=== PATIENT | female | born 1995 | race Caucasian/White ===

== ENCOUNTER 2017-07-31 17:11 | Outpatient (CLI) | payer OTHER ==
[~2017-07-31] VITALS: Ht 160 cm; Wt 100.5 kg
[2017-07-31 19:56] LABS: APPEARANCE CLOUDY ((CLEAR)); BILIRUBIN NEGATIVE; BLOOD NEGATIVE; COLOR YELLOW ((YELLOW)); GLUCOSE (STRIP) NEGATIVE; KETONES NEGATIVE; LEUKOCYTES LARGE; NITRITE NEGATIVE; PROTEIN (STRIP) 100; SPECIFIC GRAVITY 1.025 (1.000-1.030); UROBILINOGEN 0.2 MG/DL (0.2-1.0)
[2017-07-31 20:09] LABS: HEMATOCRIT 36.3 % (36.0-46.0); HEMOGLOBIN 12.3 G/DL (11.9-15.5); MCH 28.2 PG (29.0-34.0); MCHC 33.9 G/DL (30.0-36.0); MCV 83.3 FL (83-99); PLATELET COUNT 231 K/uL (156-360); RBC DIS.WIDTH-SD 38.8 % (39-53); RED BLOOD COUNT 4.36 M/uL (3.80-5.20); WHITE BLOOD COUNT 12.6 K/uL (4.1-10.2)
[2017-07-31 20:17] LABS: RED BLOOD CELLS 0-5 /HPF (0-5)
[2017-07-31 20:17] LABS: ALBUMIN 3.4 g/dL (3.2-4.8); CHLORIDE 107 mEq/L (99-109); SODIUM 138 mEq/L (136-147)
[2017-07-31 20:18] LABS: AMORPHOUS PHOSPHATE CRYSTALS 1+; BACTERIA 2+ /HPF; EPITHELIAL CELLS 1+ /HPF; MUCUS NONE SEEN /LPF; UCUL ADDED? YES; WHITE BLOOD CELLS TNTC /HPF (0-5)
[2017-07-31 20:19] LABS: GLUCOSE 86 mg/dL (70-99); TOTAL PROTEIN 6.6 g/dL (6.4-8.3)
[2017-07-31 20:21] LABS: TOTAL BILIRUBIN 0.2 mg/dL (0.0-1.0)
[2017-07-31 20:23] LABS: ALKALINE PHOSPHATASE 174 IU/L (3-129); CREATININE 0.6 mg/dL (0.6-1.3)
[2017-07-31 20:24] LABS: UREA NITROGEN (BUN) 8 mg/dL (9-23)
[2017-07-31 20:25] LABS: AST (GOT) 21 IU/L (2-34)
[2017-07-31 20:26] LABS: ALT (GPT) 18 IU/L (3-49)
[2017-07-31 20:27] LABS: GFR ESTIMATE (CALCULATED) > 59 mL/min/
[2017-07-31 20:54] LABS: QUANTITATIVE HCG 23723.2 MIU/ML
[2017-07-31 21:48] VITALS: BP 130/74
[2017-07-31] MEDS ORDERED: PRENATAL TABLE1 EAC3 PO (22:10)
[2017-07-31 22:32] LABS: COCAINE NEGATIVE (150 ng/mL); METHAMPHETAMINE NEGATIVE (500 ng/mL); PHENCYCLIDINE NEGATIVE (25 ng/mL); THC CANNABINOIDS PRESUMPTIVE POSITIVE (50 ng/mL)
[2017-07-31 22:33] LABS: AMPHETAMINE NEGATIVE (500 ng/mL); BARBITURATES NEGATIVE (200 ng/mL); BENZODIAZEPINES NEGATIVE (150 ng/mL); BUPRENORPHINE NEGATIVE (10 ng/mL); METHADONE NEGATIVE (200 ng/mL); OPIATES (MORPHINE) NEGATIVE (100 ng/mL); OXYCODONE NEGATIVE (100 ng/mL); PROPOXYPHENE NEGATIVE (300 ng/mL); TRICYCLIC ANTIDEPRESSANTS NEGATIVE (300 ng/mL)
== END 2017-07-31 22:50 | disposition home or self-care (01) ==
LOC: EME 17:11 → LDRP-OP 17:11 → EDSTATUS 21:42 → EME 21:42 → 2WEST 21:44
PROVIDERS: Midwife
DX: O9A.213 Injury, poisoning and certain other consequences of external causes complicating pregnancy, third trimester (principal); Z3A.37 37 weeks gestation of pregnancy; M54.5 Low back pain; R10.9 Unspecified abdominal pain; O99.213 Obesity complicating pregnancy, third trimester; E66.9 Obesity, unspecified; Z68.35 Body mass index [BMI] 35.0-35.9, adult; Z87.891 Personal history of nicotine dependence
CPT/HCPCS: 59025; 80053; 81003; 84702; 84999; 85027; 86900; 86901; 87086; G0378

== ENCOUNTER 2017-08-14 07:27 | Inpatient (IN) | payer OTHER ==
[~2017-08-14] VITALS: Ht 160 cm; Wt 102.9 kg
[2017-08-14] VITALS (17 sets, daily range): BP systolic 110–142; BP diastolic 6–94
[~2017-08-14 07:27] MED LIST: PRENATAL TABLE1 EAC3 PO
[2017-08-14 09:11] LABS: BASOPHIL (%) 0.4 % (0-1); BASOPHIL COUNT 0.1 K/uL (0-0.1); EOSINOPHIL (%) 0.6 % (0-5); EOSINOPHIL COUNT 0.1 K/uL (0-0.3); HEMATOCRIT 36.5 % (36.0-46.0); HEMOGLOBIN 11.8 G/DL (11.9-15.5); IMMATURE GRANULOCYTE (%) 0.5 % (0.0-0.7); LYMPHOCYTE (%) 27.6 % (15-42); LYMPHOCYTE COUNT 3.8 K/uL (1.0-2.8); MCH 26.9 PG (29.0-34.0); MCHC 32.3 G/DL (30.0-36.0); MCV 83.1 FL (83-99); MONOCYTE (%) 7.1 % (3-12); NEUTROPHIL (%) 63.8 % (45-76); NEUTROPHIL COUNT 8.9 K/uL (1.8-6.4); PLATELET COUNT 207 K/uL (156-360); RBC DIS.WIDTH-CV 13.2 % (11.8-14.6); RBC DIS.WIDTH-SD 39.9 % (39-53); RED BLOOD COUNT 4.39 M/uL (3.80-5.20); WHITE BLOOD COUNT 13.9 K/uL (4.1-10.2)
[2017-08-14 09:12] LABS: AMPHETAMINE NEGATIVE (500 ng/mL); BARBITURATES NEGATIVE (200 ng/mL); BENZODIAZEPINES NEGATIVE (150 ng/mL); BUPRENORPHINE NEGATIVE (10 ng/mL); COCAINE NEGATIVE (150 ng/mL); METHADONE NEGATIVE (200 ng/mL); METHAMPHETAMINE NEGATIVE (500 ng/mL); OPIATES (MORPHINE) NEGATIVE (100 ng/mL); OXYCODONE NEGATIVE (100 ng/mL); PHENCYCLIDINE NEGATIVE (25 ng/mL); PROPOXYPHENE NEGATIVE (300 ng/mL); THC CANNABINOIDS PRESUMPTIVE POSITIVE (50 ng/mL); TRICYCLIC ANTIDEPRESSANTS NEGATIVE (300 ng/mL)
[2017-08-15] VITALS (41 sets, daily range): BP systolic 108–159; BP diastolic 55–98
[2017-08-15] MEDS ORDERED: MOTRIN800 MG PO (17:50)
[2017-08-16 17:19] VITALS: BP 124/83
[2017-08-16 23:20] VITALS: BP 135/94
[2017-08-17 08:00] VITALS: BP 118/80
[2017-08-17 13:41] VITALS: BP 117/76
[2017-08-17 15:09] VITALS: BP 146/83
[2017-08-17 15:10] VITALS: BP 138/88
[2017-08-17 23:00] VITALS: BP 134/78
== END 2017-08-17 23:30 | disposition home or self-care (01) | DRG 775 ==
LOC: LDRP-OP 07:27 → 2WEST 07:28 → LDRP-OP 09-03 23:11
PROVIDERS: Advanced Practice Midwife
PROC: 0U7C7ZZ Dilation of Cervix, Via Natural or Artificial Opening (ICD-10-PCS; principal; 2017-08-15)
PROC: 3E0R3BZ Introduction of Anesthetic Agent into Spinal Canal, Percutaneous Approach (ICD-10-PCS; principal; 2017-08-15)
PROC: 10907ZC Drainage of Amniotic Fluid, Therapeutic from Products of Conception, Via Natural or Artificial Opening (ICD-10-PCS; principal; 2017-08-15)
PROC: 00HU33Z Insertion of Infusion Device into Spinal Canal, Percutaneous Approach (ICD-10-PCS; principal; 2017-08-15)
PROC: 10E0XZZ Delivery of Products of Conception, External Approach (ICD-10-PCS; principal; 2017-08-15)
PROC: 3E033VJ Introduction of Other Hormone into Peripheral Vein, Percutaneous Approach (ICD-10-PCS; principal; 2017-08-15)
DX: O42.92 Full-term premature rupture of membranes, unspecified as to length of time between rupture and onset of labor (principal); O99.214 Obesity complicating childbirth; E66.9 Obesity, unspecified; Z68.30 Body mass index [BMI] 30.0-30.9, adult; O99.344 Other mental disorders complicating childbirth; O99.323 Drug use complicating pregnancy, third trimester; F12.90 Cannabis use, unspecified, uncomplicated; F41.9 Anxiety disorder, unspecified; Z3A.39 39 weeks gestation of pregnancy; Z37.0 Single live birth; Z87.891 Personal history of nicotine dependence; Z90.49 Acquired absence of other specified parts of digestive tract
CPT/HCPCS: 84999; 85025; C1755; G0378; J0595; J2405; J3010; J7120; Q0169

== ENCOUNTER → 2017-08-18 | Outpatient (CLI) | payer OTHER ==
[~2017-08-18] MED LIST changes: +MOTRIN800 MG PO
== END | disposition home or self-care (01) ==
LOC: AMB 15:10
PROC: 3E0S3GC Introduction of Other Therapeutic Substance into Epidural Space, Percutaneous Approach (ICD-10-PCS; principal; 2017-08-18)
DX: G97.1 Other reaction to spinal and lumbar puncture (principal)